=== PATIENT | female | born 1965 ===

== ENCOUNTER 2022-03-31 21:24 | Observation (INO) ==
[2022-03-31] MEDS ORDERED: Lactated Ringers 1000 ml BAG 1,000 ML IV ONE (22:04)
[2022-03-31 22:26] LABS: ABS Basophils 0.1 10^3/ul (0-0.2); ABS Eosinophils 0.2 10^3/ul (0-0.6); ABS Lymphocytes 2.7 10^3/ul (1.0-4.8); ABS Monocytes 0.4 10^3/ul (0-0.8); ABS Neutrophils 2.6 10^3/ul (1.5-7.7); Eosinophil % 2.7 %; Hematocrit 44 % (35-47); Hemoglobin 14.8 g/dL (12.0-16.0); Lymphocyte % 46.2 %; Mean Corpuscular HGB Conc 34 g/dL (31-36); Mean Corpuscular Hemoglobin 31 pg (27-31); Mean Corpuscular Volume 92 fL (80-97); Mean Platelet Volume 9.9 fL (7.4-10.4); Nucleated Red Blood Cells % 0.1; Platelet Count 139 10^3/uL (150-450); Red Blood Count 4.77 10^6 /uL (3.70-4.87); Red Cell Distribution Width 13 % (10-15); White Blood Count 5.9 10^3/uL (3.5-10.8)
[2022-03-31] MEDS ORDERED: Magnesium Sulfate 2 gm BAG 2 GM/50 ML BAG IVPB ONE (22:32)
[2022-03-31 22:43] LABS: ALT 33 U/L (7-52); AST 29 U/L (13-39); Acetaminophen < 15 mcg/mL; Albumin 4.3 g/dL (3.2-5.2); Albumin/Globulin Ratio 1.7 (1-3); Alcohol, S 182 mg/dL (<13); Alkaline Phosphatase 91 U/L (35-149); Anion Gap 9 mmol/L (2-11); Blood Urea Nitrogen 11 mg/dL (6-24); CO2 Carbon Dioxide 20 mmol/L (22-32); Calcium 8.6 mg/dL (8.6-10.3); Chloride 105 mmol/L (101-111); Globulin 2.6 g/dL (2-4); Glucose 86 mg/dL (70-100); Magnesium 2.1 mg/dL (1.9-2.7); Potassium 3.1 mmol/L (3.5-5.0); Salicylate < 2.50 mg/dL (<30); Sodium 134 mmol/L (135-145); Total Protein 6.9 g/dL (6.4-8.9); eGFR CKD-EPI 91.9 (>60)
[2022-03-31 22:59] LABS: TSH Ultra Thyroid Stim Horm 3.79 mcIU/mL (0.34-5.60)
[2022-03-31] MEDS ORDERED: NS 0.9% 1000 ml BAG 1,000 ML IV ONE (23:24)
[2022-03-31] MEDS ORDERED: KCL 20 MEQ/100 ML IVPREMIX 20 MEQ/100 ML BAG IV ONE (23:25)
[2022-04-01] MEDS ORDERED: levETIRAcetam 500 MG IVPREMIX 500 MG/100 ML BAG IV ONE
[2022-04-01] MEDS ORDERED: Lactated Ringers 1000 ml BAG 1,000 ML IV ONE (00:26)
[2022-04-01 01:25] LABS: Urine Appearance Turbid; Urine Bilirubin Negative (Negative); Urine Blood 1+ (Negative); Urine Color Amber; Urine Glucose Negative (Negative); Urine Ketones Negative (Negative); Urine Nitrite Negative (Negative); Urine Protein Negative (Negative); Urine Specific Gravity 1.002 (1.002-1.030); Urine Urobilinogen Negative (Negative)
[2022-04-01 01:48] LABS: Urine Benzodiazepine Screen None Detected (None Detect); Urine Cannabinoids Screen None Detected (None Detect); Urine Opiates Screen None Detected (None Detect)
[2022-04-01] MEDS: KCL 20 MEQ/100 ML IVPREMIX 20 MEQ/100 ML BAG IV SCH ×2 (02:15→04:29)
[2022-04-01 02:23] LABS: Urine Bacteria Absent (Absent); Urine Red Blood Cell 1+(3-5/hpf) (Absent); Urine White Blood Cell 2+(11-20/hpf) (Absent)
[2022-04-01 05:09] LABS: ABS Eosinophils 0.2 10^3/ul (0-0.6); ABS Lymphocytes 2.1 10^3/ul (1.0-4.8); ABS Monocytes 0.3 10^3/ul (0-0.8); ABS Neutrophils 1.6 10^3/ul (1.5-7.7); Eosinophil % 3.8 %; Hematocrit 38 % (35-47); Hemoglobin 12.6 g/dL (12.0-16.0); Lymphocyte % 50.7 %; Mean Corpuscular HGB Conc 34 g/dL (31-36); Mean Corpuscular Hemoglobin 31 pg (27-31); Mean Corpuscular Volume 93 fL (80-97); Mean Platelet Volume 9.9 fL (7.4-10.4); Platelet Count 120 10^3/uL (150-450); Red Blood Count 4.04 10^6 /uL (3.70-4.87); Red Cell Distribution Width 13 % (10-15); White Blood Count 4.2 10^3/uL (3.5-10.8)
[2022-04-01 05:58] LABS: Calcium 8.1 mg/dL (8.6-10.3); eGFR CKD-EPI 102.2 (>60)
[2022-04-01] MEDS ORDERED: levETIRAcetam 500 MG IVPREMIX 500 MG/100 ML BAG IV SCH (09:00)
[2022-04-02 12:44] VITALS: BP 179/75
== END 2022-04-02 13:35 | disposition home or self-care (01) ==
LOC: ED 21:24 → EDHOLD 21:24 → SUATTDRO 04-01 00:27 → MED 04-01 09:15
PROVIDERS: ADMIT Internal Medicine; ATTEND Student in an Organized Health Care Education/Training Program